=== PATIENT | female | born 1985 | race African-American/Black ===

== ENCOUNTER 2022-03-06 23:39 | Emergency (ER) | payer MEDICAID ==
[~2022-03-06] VITALS: Ht 167.6 cm; Wt 113.4 kg
[2022-03-06 23:40] VITALS: BP 156/110
[2022-03-07] MEDS ORDERED: ENALAPRIL 10 MG TAB PO ONE (00:30)
[2022-03-07] MEDS ORDERED: ENAL-197 PO (01:21)
[2022-03-07 01:47] VITALS: BP 138/78
== END 2022-03-07 01:46 | disposition home or self-care (01) ==
LOC: MED 23:39
DX: S52.291A Other fracture of shaft of right ulna, initial encounter for closed fracture (principal); I10 Essential (primary) hypertension; Z79.899 Other long term (current) drug therapy; W19.XXXA Unspecified fall, initial encounter; Y93.89 Activity, other specified; Y92.89 Other specified places as the place of occurrence of the external cause; Y99.8 Other external cause status
CPT/HCPCS: 29105; 73090; 73110; 99284; Q0092